=== PATIENT | female | born 1990 | race Hispanic/Latino ===

== ENCOUNTER 2017-09-29 03:23 | Emergency (ER) | payer OTHER, MEDICAID ==
[2017-09-29] MEDS ORDERED: ACETAMINOPHEN 325 MG TAB ONE (03:56)
== END 2017-09-29 05:35 | disposition home or self-care (01) ==
LOC: EDH 03:23
DX: O02.1 Missed abortion (principal); Z3A.12 12 weeks gestation of pregnancy; Z98.890 Other specified postprocedural states
CPT/HCPCS: 36415; 76805; 84702

== ENCOUNTER 2017-10-01 12:09 | Emergency (ER) | payer OTHER, MEDICAID ==
[2017-10-01] MEDS ORDERED: 0.9% SODIUM CHLORIDE 1000 ML IV BAG IV ONE (12:37)
[2017-10-01 12:44] LABS: BASOPHILS % (AUTO) 0.3 % (0.0-5.0); EOSINOPHILS % (AUTO) 0.4 % (0.0-8.0); HEMATOCRIT 40.6 % (36-48); MEAN CORPUSCULAR HEMOGLOBIN 30.6 pg (27.0-33.0); MEAN CORPUSCULAR HGB CONC 34.7 g/dL (32.0-36.0); MEAN CORPUSCULAR VOLUME 88.1 fL (79-99); NEUTROPHILS % (AUTO) 80.3 % (40.0-77.0); PLATELET COUNT (AUTO) 268 K/uL (130-400); RED BLOOD CELL COUNT(AUTO) 4.61 MIL/uL (4.00-5.50); RED CELL DISTRIBUTION WIDTH 12.6 % (11.0-15.5); WHITE BLOOD COUNT (AUTO) 11.2 K/uL (4.8-10.8)
[2017-10-01 13:04] LABS: CREATININE 0.5 mg/dL (0.5-1.5); POTASSIUM 3.6 mmol/L (3.5-5.1)
[2017-10-01 13:14] LABS: ALBUMIN 3.3 g/dL (3.5-5.0); BILIRUBIN,TOTAL 0.4 mg/dL (0.2-1.0); TOTAL PROTEIN, SERUM 7.4 g/dL (6.0-8.3)
[2017-10-01] MEDS ORDERED: IBUPROFEN 600 MG TABLET ONE (15:09)
== END 2017-10-01 16:03 | disposition home or self-care (01) ==
LOC: EDH 12:09
DX: O20.9 Hemorrhage in early pregnancy, unspecified (principal); Z3A.15 15 weeks gestation of pregnancy
CPT/HCPCS: 36415; 80053; 84702; 85025; 86850; 86900; 86901; 96360; 96361; 99285; J7030

== ENCOUNTER 2017-10-02 05:36 | Day surgery (SDC) | payer OTHER, MEDICAID ==
[2017-10-01 15:45] VITALS: BP 109/66
[~2017-10-02] VITALS: Ht 149.9 cm; Wt 69.9 kg
[2017-10-02] VITALS (17 sets, daily range): BP systolic 103–138; BP diastolic 57–86
[2017-10-02] MEDS ORDERED: OXYCODONE HCL 10 MG TAB.SR.12H PO ONE (05:41)
[2017-10-02] MEDS ORDERED: LACTATED RINGERS 1000ML 1,000 ML IV SCH (06:00)
[2017-10-02] MEDS ORDERED: CEFAZOLIN SODIUM 1 GM VIAL IVP SCH (06:00)
[2017-10-02] MEDS ORDERED: FENTANYL CITRATE PF 50 MCG/1 ML 2ML VIAL ONE (06:39)
[2017-10-02] MEDS ORDERED: MIDAZOLAM HCL 1 MG/ML 2ML VIAL ONE (06:39)
[2017-10-02] MEDS ORDERED: OXYTOCIN 10 USP UNITS/ML ONE (06:48)
[2017-10-02] MEDS ORDERED: MEPERIDINE-PF 25 MG/ML SYG ONE ×2 (07:33→07:44)
== END 2017-10-02 08:45 | disposition home or self-care (01) ==
LOC: DAH 05:36
PROVIDERS: ATTEND Obstetrics & Gynecology
DX: O03.4 Incomplete spontaneous abortion without complication (principal)
CPT/HCPCS: 59820; 88305; A4510; A4600; A4606; J2175 ×2; J2250; J2590; J3010; J7120 ×2